=== PATIENT | male | born 1945 | race Two or more races ===

== ENCOUNTER 2021-01-11 12:39 | Emergency (ER) | payer MEDICARE ==
[~2021-01-11] VITALS: Ht 182.9 cm; Wt 61.2 kg
[2021-01-11 12:52] VITALS: BP 103/69
== END 2021-01-11 14:51 | disposition home or self-care (01) ==
LOC: ER 12:41
DX: S22.078A Other fracture of T9-T10 vertebra, initial encounter for closed fracture (principal); Z98.890 Other specified postprocedural states; W19.XXXA Unspecified fall, initial encounter; Y93.89 Activity, other specified; Y92.89 Other specified places as the place of occurrence of the external cause; Y99.8 Other external cause status
CPT/HCPCS: 72074-TC